=== PATIENT | female | born 1940 | race Caucasian/White ===

== ENCOUNTER → 2023-09-25 12:52 | Outpatient (REF) | payer OTHER, SELFPAY | LOC: RAD 12:52 | PROVIDERS: ATTENDING PHYSICIAN Internal Medicine Cardiovascular Disease; FAMILY PHYSICIAN Emergency Medicine | DX: I48.0 Paroxysmal atrial fibrillation (principal); Z79.899 Other long term (current) drug therapy | CPT/HCPCS: 71046 ==

== ENCOUNTER → 2024-05-07 10:36 | Outpatient (REF) | payer OTHER, SELFPAY | LOC: RAD 10:36 | PROVIDERS: ATTENDING PHYSICIAN Internal Medicine Cardiovascular Disease; FAMILY PHYSICIAN Emergency Medicine | DX: I48.0 Paroxysmal atrial fibrillation (principal) | CPT/HCPCS: 71046 ==

== ENCOUNTER 2024-10-02 07:40 | Emergency (ER) | payer OTHER, SELFPAY ==
[2024-10-02 07:49] VITALS: BP 117/55
[2024-10-02 07:50] VITALS: BP 117/55
[2024-10-02 08:00] VITALS: BP 118/53
--- NOTE | 2024-10-02 08:36 | ED.GENMED ---
History of Present Illness
General
Chief Complaint: Dizziness
Source: patient
Exam Limitations: none
Time Seen by Provider: 10/02/24 08:16
History of Present Illness
History of Present Illness:
84-year-old female presents with sensation of frontal headache and vertigo sensation starting yesterday getting worse today. She is on Eliquis do not milligrams twice a day for history of atrial fibrillation. She had routine follow-up with her
car seat maker 5 days ago and was found to be in A-fib with a rate in the 120s. She was asymptomatic at that time. She followed up again 2 days ago with the cardiology team and was found back to be in sinus rhythm. She has no complaints of chest
pain. Since 2 days ago, the cardiology team increased her amiodarone dosing. She was initially on 100 mg every morning as well as 100 mg every other night. She was then changed to 200mg BID. She feels as though her symptoms may be related to
increased dose of amiodarone. 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 She has no new numbness or weakness. She denies any double vision blurry vision. She is nauseous. Dizziness is described as constant not
made worse with turning her head but seems to be increased with sitting up.
Past History
Past History
ED Past Medical History: Arrthythmia, HTN and Hypercholesterolemia
ED Past Surgical History: None
Social History
Tobacco: Former smoker
Personal:
Living: with family
Phy Exam
Physical Exam
Physical Exam:
General: Well-appearing female no acute respiratory distress
HEENT: Normocephalic atraumatic pupils equal round reactive to light no obvious nystagmus noted
Heart: Regular rate and rhythm
Lungs: Clear no wheeze
Abdomen is soft nontender nondistended
Neurologic exam: Alert and oriented x 3 no facial asymmetry finger-nose intact no arm drift. No leg drift. There is a subtle this conjunction with [id number] using the left heel on the right adams. Patient states this is her chronic issue from
her prior stroke.
Extremities: No cyanosis
Course
Orders/Labs/Results
Orders:
Orders
10/02/24 07:57
EKG [Electrocardiogram (*1)] Urgent
Reason for Study: Vertigo / Dizzy
10/02/24 07:58
EKG- Treatment ONCE
10/02/24 08:30
CT Head W/o Iv Contrast Urgent
Comment:
Reason For Exam: headache, dizzy
10/02/24 08:34
Orthostatic VS- Treatment ONCE
10/02/24 08:57
Complete Blood Count/With Diff Urgent
Comprehensive Metabolic Panel Urgent
Abnormal Lab Results
10/02/24
08:57
MCHC 32.9 L g/dL
(33.0-37.0)
RDW 14.7 H %
(11.5-14.5)
Absolute Lymphs (auto) 1.0 L 10^3/uL
(1.2-3.4)
Neutrophils % 75.9 H %
(42.2-75.2)
Lymphocytes % 13.9 L %
(20.5-51.1)
BUN 22 H mg/dl
(7-17)
Glucose 119 H mg/dl
(70-99)
Total Bilirubin 1.5 H mg/dl
(0.2-1.3)
10/02/24 08:57
10/02/24 08:57
Vital Signs
Initial and Last Documented VS:
Initial Vital Signs
BP
117/55
10/02/24 07:49
Last Documented Vital Signs
Temp Pulse Resp BP Pulse Ox
97.8 F 53 16 123/55 97
10/02/24 07:50 10/02/24 09:15 10/02/24 07:50 10/02/24 10:30 10/02/24 09:15
MDM/Problems Addressed
Differential Diagnosis Includes:
Dizziness. Question vertigo versus orthostasis versus medication adverse reaction versus stroke. Given her headache and dizziness CT of the head is pending. Will check labs EKG and orthostatics.
*Critical Care Note
Total Time (30-74mins, 75-104mins- exclusive of procedures): Not Applicable
Update Note
Update Note:
CT head is negative. Patient feeling somewhat better with time here. Discussed with emergency room attending as well as cardiology. Patient has been bradycardic here not feeling well. Cardiology did suggest to go back to her initial amiodarone
dosing. Patient expresses her desire to go home. She is with family who is in agreement. She follows up with cardiology next week. Stable for discharge
ED Attending Note
-
Portions of this chart may have been created with voice recognition software.� Occasional wrong word or��sound alike� substitutions may have occurred due to the inherent limitations of voice recognition software.
Discharge Plan
Departure
Patient Disposition: Home (Routine Discharge)
Date of Disposition: 10/02/24
Time of Disposition: 10:50
Patient with high blood pressure during this ER visit?: No
Discharge Problem:
Weakness
Instructions: Dizziness
Prescriptions:
No Action
multivitamin [Pdz-[id number]] 1 EACH tablet
1 ea PO DAILY
ascorbic acid (vitamin C) [Vitamin C] 500 MG tablet
500 mg PO DAILY
vitamin B complex-folic acid [Super B Maxi Complex] 0.4 MG tablet
0.4 mg PO DAILY
calcium carbonate-vitamin D3 1 EACH tablet
1 ea PO DAILY
Krill Oil
1 tab PO DAILY
acetaminophen 325 MG tablet
650 mg PO Q4HPRN PRN (Reason: temp greater than 100.4 F) 0RF
rosuvastatin 10 MG tablet
10 mg PO QPM Qty: 30 0RF
Eliquis 5 MG tablet
5 mg PO BID Qty: 60 0RF
benazepril-hydrochlorothiazide 20-12.5 mg Tablet
1 tab PO DAILY
amiodarone 100 mg Tablet
100 mg PO BID
amlodipine benzoate 1 mg/mL Suspension
5 mg PO DAILY
meclizine 25 mg tablet
25 mg PO BID PRN (Reason: dizziness) Qty: 14 0RF
Referrals:
Carolina Wakefield MD [Family Provider] -
Activity Restrictions/Additional Instructions:
Please resume your original dose of amiodarone of 100 mg every morning and subsequently 100 mg every other night. Follow-up with a car seat maker as scheduled. Return if needed otherwise
Interventions
Interventions:
*Risk Screen - Suicide Last Done: 10/02/24 07:50
*General Assessment Last Done: 10/02/24 07:50
*Neglect/Abuse Screening Last Done: 10/02/24 07:50
*ED COVID-19 Vaccine History Last Done: 10/02/24 07:55
ED- Neurological Assessment Last Done: 10/02/24 07:56
ED Swallowing Screen Last Done: 10/02/24 07:56
Discharge Date and Time
Print Language: SAMI
[2024-10-02 09:00] VITALS: BP 112/47
[2024-10-02 09:06] LABS: % Basophils 0.8 % (0-2); % Eosinophils 2.7 % (0-6); % Immature Granulocytes 0.4 % (0-0.5); % Lymphocytes 13.9 % (20.5-51.1); % Monocytes 6.3 % (1.7-9.3); % Neutrophils 75.9 % (42.2-75.2); Absolute Basophils 0.1 10^3/uL (0-0.2); Absolute Eosinophils 0.2 10^3/uL (0-0.7); Absolute Monocytes 0.5 10^3/uL (0.1-0.6); Absolute Neutrophils 5.6 10^3/uL (1.4-6.5); Hematocrit 41.7 % (37.0-47.0); Hemoglobin 13.7 g/dL (12.0-16.0); Mean Corp Hgb Conc. 32.9 g/dL (33.0-37.0); Mean Corpuscular Hgb 28.5 pg (27.0-31.0); Mean Corpuscular Volume 86.7 fL (81.0-99.0); Mean Platelet Volume 9.1 fL (7.4-10.4); Nucleated Red Blood Cells % 0 %; Platelet Count 215 10^3/uL (130-400); Red Blood Cell Count 4.81 10^6/uL (4.20-5.40); Red Cell Dist. Width 14.7 % (11.5-14.5); White Blood Cell Count 7.4 10^3/uL (4.8-10.8)
[2024-10-02 09:22] LABS: ALT (SGPT) 17 U/L (0-35); AST (SGOT) 31 U/L (14-36); Albumin 4.1 g/dl (3.5-5.0); Alkaline Phosphatase 106 U/L (38-126); Blood Urea Nitrogen 22 mg/dl (7-17); Calcium 9.5 mg/dl (8.4-10.2); Carbon Dioxide 27 mmol/L (22-30); Chloride 104 mmol/L (98-107); Glucose 119 mg/dl (70-99); Potassium 4.3 mmol/L (3.5-5.1); Sodium 138 mmol/L (135-145); Total Bilirubin 1.5 mg/dl (0.2-1.3); Total Protein 7.6 g/dl (6.3-8.2); eGFR > 60.00
[2024-10-02 10:30] VITALS: BP 100/63; BP 123/51; BP 123/55; PULSE 62; PULSE 64; PULSE 79
[2024-10-02 11:14] VITALS: BP 134/78
== END 2024-10-02 11:16 | disposition home or self-care (01) ==
LOC: EMR 07:40
PROVIDERS: Physician Assistant; EMERGENCY PHYSICIAN Emergency Medicine; FAMILY PHYSICIAN Emergency Medicine
DX: R53.1 Weakness (principal); I10 Essential (primary) hypertension; E78.00 Pure hypercholesterolemia, unspecified; Z79.01 Long term (current) use of anticoagulants; Z86.73 Personal history of transient ischemic attack (TIA), and cerebral infarction without residual deficits; Z87.891 Personal history of nicotine dependence
CPT/HCPCS: 99284; 70450; 80053; 85025; 93005

== ENCOUNTER → 2024-10-11 13:18 | Outpatient (REF) | payer OTHER, SELFPAY | LOC: RCS 13:18 | PROVIDERS: ATTENDING PHYSICIAN Internal Medicine Cardiovascular Disease; FAMILY PHYSICIAN Emergency Medicine | DX: I48.0 Paroxysmal atrial fibrillation (principal) | CPT/HCPCS: 93306 ==

== ENCOUNTER 2024-11-19 12:00 | Emergency (ER) | payer OTHER, SELFPAY ==
[2024-11-19 12:08] VITALS: BP 150/78
--- NOTE | 2024-11-19 12:53 | ED.GENMED ---
History of Present Illness
General
Chief Complaint: Musculo-Skeletal Complaint
Source: patient and physician (Dr. Okeefe, sending patient from home after patient called her in office. She was seen for a sick visit on 11/15/2024 and her cough and rib pain is getting worse. She was placed on cefdinir and methylprednisolone for
bronchitis.)
Exam Limitations: none
Time Seen by Provider: 11/19/24 12:33
Nursing documentation reviewed up to this point in time: agreed with
History of Present Illness
History of Present Illness:
84-year-old female presents emergency department due to cough, that began about 2 weeks ago as sinus congestion. She saw her primary care doctor and was given cefdinir and methylprednisolone. She states her cough and rib pain persist. He takes
amiodarone and Eliquis for atrial fibrillation.
Past History
Past History
ED Past Medical History: Arrthythmia, HTN and Hypercholesterolemia
ED Past Surgical History: None
Social History
Tobacco: Former smoker
Alcohol: None
Drug: None
Personal:
Living: with family
Review of Systems
Review of Systems
Allergies reviewed?: Yes
All Other Systems: Not applicable
Constitutional: Reports no symptoms
EENT: Reports no symptoms
Respiratory: Reports cough and trouble breathing
Cardiac: Reports chest pain
ABD/GI: Reports no symptoms
: Reports no symptoms
Musculoskeletal: Reports no symptoms
Skin: Reports no symptoms
Neurological: Reports no symptoms
Endocrine: Reports no symptoms
Hematologic/Lymphatic: Reports no symptoms
Psychiatric: Reports no symptoms
Phy Exam
Physical Exam
Physical Exam:
Physical Exam
General: no apparent distress, not acutely ill
Neck: supple. no meningeal signs. normal posterior pharynx
Heart: s1/s2 regular rate and rhythm, no murmur. equal radial
pulses.
HEENT: Pupils equal round reactive to light, EOMI
Lungs: no acute respiratory distress. Mild wheeze bilaterally
Abdomen: normal bowel sounds. not tender. no CVAT
Neuro: alert and oriented. no focal neurological deficits cranial nerves II through XII intact
Skin: no rash
Psychiatric: well kept. interactive and cooperative
Extremities: no edema. no calf tenderness. negative homans. good distal pulses
Course
Orders/Labs/Results
Orders:
Orders
11/19/24 12:12
CR Chest - 2 Views Urgent
Comment:
Reason For Exam: pain
11/19/24 12:49
Electrocardiogram (*1) Stat
Reason for Study: Other
Other Reason for Exam: pneumonia
EKG- Treatment ONCE
IV Insert/Care/Rem.- Treatment PRN
11/19/24 13:08
Complete Blood Count/With Diff Urgent
Comprehensive Metabolic Panel Urgent
Lactic Acid Q4H
Comment: CANCEL 2nd LACTIC ACID IF 1st LACTIC ACID IS LESS THAN 2
NT-proBNP Urgent
Troponin I Urgent
11/19/24 16:05
Amoxicillin 875 mg/Clav 125 mg [Augmentin 875 mg/125 mg] 1 tablet PO NOW STA
Doxycycline [Vibramycin] 100 mg PO NOW STA
Abnormal Lab Results
11/19/24
13:08
RDW 14.8 H %
(11.5-14.5)
Abs Immat Gran (auto) 0.1 H 10^3/uL
(0-0.05)
Absolute Neuts (auto) 8.2 H 10^3/uL
(1.4-6.5)
Absolute Lymphs (auto) 0.8 L 10^3/uL
(1.2-3.4)
Immature Gran % 1.1 H %
(0-0.5)
Neutrophils % 84.4 H %
(42.2-75.2)
Lymphocytes % 7.7 L %
(20.5-51.1)
Glucose 128 H mg/dl
(70-99)
11/19/24 13:08
11/19/24 13:08
Vital Signs
Initial and Last Documented VS:
Initial Vital Signs
Temp Pulse Resp BP Pulse Ox
98.9 F 79 16 150/78 94
11/19/24 12:08 11/19/24 12:08 11/19/24 12:08 11/19/24 12:08 11/19/24 12:08
Last Documented Vital Signs
Temp Pulse Resp BP Pulse Ox
98.9 F 79 16 150/78 94
11/19/24 12:08 11/19/24 12:08 11/19/24 12:08 11/19/24 12:08 11/19/24 12:23
MDM/Problems Addressed
Differential Diagnosis Includes:
Pneumonia, pneumothorax, rib fracture
MDM/Problems Addressed:
84-year-old female with right-sided pneumonia, treat with Augmentin and doxycycline.
Chronic conditions affecting care: HTN and Arrhythmia
Acute Exacerbation and/or Progression of Chronic Illness: HTN
*Radiology
Radiology exam reviewed: radiology read reviewed (Right-sided pneumonia)
*Pulse Oximetry
Patient hypoxic: no
*EKG
Interpreted by ED Provider?: Yes
EKG Intrepretation Date: 11/19/24
EKG Intrepretation Time: 13:41
Interpretation: abnormal
Comparison EKG: no comparison EKG present
Heart Rate: 64
Rate: normal
Rhythm: sinus
Reserve: left axis deviation
Interval: normal interval
QRS Pattern: normal QRS
Ischemia: no ischemia
*Nuclear Auxiliary Operator Interpretation
Rate: normal
Interpretation: normal
Heart Rate: 65
Rhythm: sinus
*Critical Care Note
Total Time (30-74mins, 75-104mins- exclusive of procedures): Not Applicable
Patient Management
Social determinants of health affecting care: Living situation and Strong social support
Escalation/DeEscalation of care consider admission/obs:
admit not indicated
ED Attending Note
-
Portions of this chart may have been created with voice recognition software.� Occasional wrong word or��sound alike� substitutions may have occurred due to the inherent limitations of voice recognition software.
Discharge Plan
Departure
Patient Disposition: Home (Routine Discharge)
Date of Disposition: 11/19/24
Time of Disposition: 16:07
Patient with high blood pressure during this ER visit?: Yes
Condition: Good
Discharge Problem:
Pneumonia
Instructions: Pneumonia, BLOOD PRESSURE
Prescriptions:
New
amoxicillin-pot clavulanate 875-125 mg tablet
1 tab PO BID Qty: 14 0RF
doxycycline hyclate 100 mg tablet
100 mg PO BID 14 Days Qty: 28 0RF
No Action
multivitamin [Rmq-Wlxcxv-Jyckj] 1 EACH tablet
1 ea PO DAILY
ascorbic acid (vitamin C) [Vitamin C] 500 MG tablet
500 mg PO DAILY
vitamin B complex-folic acid [Super B Maxi Complex] 0.4 MG tablet
0.4 mg PO DAILY
calcium carbonate-vitamin D3 1 EACH tablet
1 ea PO DAILY
Krill Oil
1 tab PO DAILY
acetaminophen 325 MG tablet
650 mg PO Q4HPRN PRN (Reason: temp greater than 100.4 F) 0RF
rosuvastatin 10 MG tablet
10 mg PO QPM Qty: 30 0RF
Eliquis 5 MG tablet
5 mg PO BID Qty: 60 0RF
benazepril-hydrochlorothiazide 20-12.5 mg Tablet
1 tab PO DAILY
amiodarone 100 mg Tablet
100 mg PO BID
amlodipine benzoate 1 mg/mL Suspension
5 mg PO DAILY
meclizine 25 mg tablet
25 mg PO BID PRN (Reason: dizziness) Qty: 14 0RF
Referrals:
Carolina Wakefield MD [Family Provider] - Call in 1-3 days for appt
Interventions
Interventions:
*Risk Screen - Suicide Last Done: 11/19/24 12:08
*General Assessment Last Done: 11/19/24 12:08
*Neglect/Abuse Screening Last Done: 11/19/24 12:08
*ED- Fall Risk Assessment Last Done: 11/19/24 12:08
*ED COVID-19 Vaccine History Last Done: 11/19/24 12:08
*Nursing Disposition Last Done: 11/19/24 16:29
ED-Musculoskeletal Assessment Last Done: 11/19/24 12:22
Discharge Date and Time
Discharge Date/Time: 11/19/24 16:30
Print Language: YAKUT
[2024-11-19 13:08] VITALS: BMI 21.4
[2024-11-19 13:40] LABS: % Basophils 0.3 % (0-2); % Eosinophils 0.1 % (0-6); % Immature Granulocytes 1.1 % (0-0.5); % Lymphocytes 7.7 % (20.5-51.1); % Monocytes 6.4 % (1.7-9.3); % Neutrophils 84.4 % (42.2-75.2); Absolute Immature Granulocytes 0.1 10^3/uL (0-0.05); Absolute Lymphocytes 0.8 10^3/uL (1.2-3.4); Absolute Monocytes 0.6 10^3/uL (0.1-0.6); Absolute Neutrophils 8.2 10^3/uL (1.4-6.5); Hematocrit 39.4 % (37.0-47.0); Hemoglobin 13.2 g/dL (12.0-16.0); Mean Corp Hgb Conc. 33.5 g/dL (33.0-37.0); Mean Corpuscular Hgb 28.9 pg (27.0-31.0); Mean Corpuscular Volume 86.2 fL (81.0-99.0); Mean Platelet Volume 8.6 fL (7.4-10.4); Nucleated Red Blood Cells % 0 %; Platelet Count 362 10^3/uL (130-400); Red Blood Cell Count 4.57 10^6/uL (4.20-5.40); Red Cell Dist. Width 14.8 % (11.5-14.5); White Blood Cell Count 9.8 10^3/uL (4.8-10.8)
[2024-11-19 13:58] LABS: ALT (SGPT) 21 U/L (0-35); AST (SGOT) 22 U/L (14-36); Albumin 3.6 g/dl (3.5-5.0); Alkaline Phosphatase 89 U/L (38-126); Blood Urea Nitrogen 17 mg/dl (7-17); Calcium 9.2 mg/dl (8.4-10.2); Carbon Dioxide 27 mmol/L (22-30); Chloride 100 mmol/L (98-107); Estimated Creatinine Clearance 42 ml/min; Glucose 128 mg/dl (70-99); Potassium 3.9 mmol/L (3.5-5.1); Sodium 135 mmol/L (135-145); Total Bilirubin 0.8 mg/dl (0.2-1.3); Total Protein 7.1 g/dl (6.3-8.2); eGFR > 60.00
[2024-11-19 14:03] LABS: NT-proBNP 771 pg/ml; Troponin I < 0.012 ng/ml
[2024-11-19] MEDS: VIBRAMYCIN 100 MG PO (16:13)
[2024-11-19] MEDS: AUGMENTIN 875 MG/125 MG 1 TABLET PO (16:13)
== END 2024-11-19 16:30 | disposition home or self-care (01) ==
LOC: EMR 12:00
PROVIDERS: EMERGENCY PHYSICIAN Emergency Medicine; FAMILY PHYSICIAN Emergency Medicine
DX: J18.9 Pneumonia, unspecified organism (principal); E78.00 Pure hypercholesterolemia, unspecified; I10 Essential (primary) hypertension; Z87.891 Personal history of nicotine dependence; I48.91 Unspecified atrial fibrillation; Z79.01 Long term (current) use of anticoagulants
CPT/HCPCS: 99285; 71046; 80053; 83605; 83880; 84484; 85025; 93005

== ENCOUNTER 2024-11-22 14:07 | Inpatient (IN) | payer OTHER, SELFPAY ==
[2024-11-22] VITALS (7 sets, daily range): BP systolic 105–136; BP diastolic 54–74; BMI 18.9; BMI 20.8
[2024-11-22 09:58] LABS: % Basophils 0.7 % (0-2); % Eosinophils 3.8 % (0-6); % Immature Granulocytes 1.3 % (0-0.5); % Monocytes 9.7 % (1.7-9.3); % Neutrophils 67.5 % (42.2-75.2); Absolute Basophils 0.1 10^3/uL (0-0.2); Absolute Eosinophils 0.4 10^3/uL (0-0.7); Absolute Immature Granulocytes 0.2 10^3/uL (0-0.05); Absolute Lymphocytes 1.9 10^3/uL (1.2-3.4); Absolute Monocytes 1.1 10^3/uL (0.1-0.6); Absolute Neutrophils 7.7 10^3/uL (1.4-6.5); Hematocrit 40.5 % (37.0-47.0); Hemoglobin 13.3 g/dL (12.0-16.0); Mean Corp Hgb Conc. 32.8 g/dL (33.0-37.0); Mean Corpuscular Hgb 28.2 pg (27.0-31.0); Mean Platelet Volume 8.3 fL (7.4-10.4); Nucleated Red Blood Cells % 0 %; Platelet Count 416 10^3/uL (130-400); Red Blood Cell Count 4.71 10^6/uL (4.20-5.40); Red Cell Dist. Width 14.6 % (11.5-14.5); White Blood Cell Count 11.3 10^3/uL (4.8-10.8)
[2024-11-22 10:12] LABS: ALT (SGPT) 20 U/L (0-35); AST (SGOT) 23 U/L (14-36); Albumin 3.8 g/dl (3.5-5.0); Alkaline Phosphatase 85 U/L (38-126); Blood Urea Nitrogen 12 mg/dl (7-17); Calcium 9.6 mg/dl (8.4-10.2); Carbon Dioxide 26 mmol/L (22-30); Chloride 100 mmol/L (98-107); Glucose 116 mg/dl (70-99); Potassium 4.2 mmol/L (3.5-5.1); Sodium 135 mmol/L (135-145); Total Protein 7.4 g/dl (6.3-8.2); eGFR > 60.00
[2024-11-22 10:22] LABS: Troponin I < 0.012 ng/ml
--- NOTE | 2024-11-22 10:58 | ED.GENMED ---
History of Present Illness
General
Chief Complaint: Breathing Problem
Source: patient
Time Seen by Provider: 11/22/24 10:31
Nursing documentation reviewed up to this point in time: agreed with
History of Present Illness
History of Present Illness:
Patient is 84-year-old female presents back to the ER for evaluation. Patient was seen here on November 19 3 days ago for cough and congestion. She was discharged on Augmentin and doxycycline however now complains of night sweats last night shortness of
breath along with increasing pain to her entire back. Patient reports she saw her family doctor today who does feel that she needs to be admitted .
She reports she has had night sweats last night complains of pain throughout her entire back. Prior to being on Augmentin and doxycycline she was on cefdinir prescribed to her family doctor. I reviewed chest x-ray results from 3 days ago which
shows a small patchy opacity in the right lower lobe suggesting atelectasis and or pneumonia
Past History
Past History
ED Past Medical History: Arrthythmia, HTN and Hypercholesterolemia
ED Past Surgical History: None
Social History
Tobacco: Former smoker
Alcohol: None
Drug: None
Personal:
Living: with family
Review of Systems
Review of Systems
Allergies reviewed?: Yes
Constitutional: Reports no symptoms; Denies fever, fatigue or chills
Respiratory: Reports cough
Cardiac: Reports no symptoms
ABD/GI: Reports no symptoms
Musculoskeletal: Reports back pain (+ back pain )
Skin: Reports no symptoms
Neurological: Reports no symptoms
Psychiatric: Reports no symptoms
Phy Exam
General Physical Exam
General Presentation: no apparent distress
General age: appears stated age
General Skin: warm and dry
General Habitus: elderly
General Mental: alert
General Hydration: appears well hydrated
Cardiovascular Exam
Cardiovascular Exam: regular rate/rhythm, no murmur and normal peripheral pulses
Pulmonary Exam
Pulmonary Exam: lungs clear and no respiratory distress
Neurological Exam
Neurological Exam: alert and oriented x3
Musculoskeletal Exam
Musculoskeletal Exam: full ROM and neck pain
Skin Exam
Skin Exam: normal color
Psychiatric Exam
Psychiatric Exam: normal mood/affect
Scores
Heart Failure Risk
Heart Failure Risk Score: Not Applicable
Course
Orders/Labs/Results
Orders:
Orders
11/22/24 09:38
Electrocardiogram (*1) Urgent
Reason for Study: Other
Other Reason for Exam: back pain
EKG- Treatment ONCE
11/22/24 09:45
Complete Blood Count/With Diff Urgent
Comprehensive Metabolic Panel Urgent
Troponin I Urgent
11/22/24 11:07
CT Chest PE Study Urgent
Comment:
Reason For Exam: back pain , fevers
0.9% Sodium Chloride 500 ml [Nss] 500 ml IV BOLUS
Abnormal Lab Results
11/22/24
09:45
WBC 11.3 H 10^3/uL
(4.8-10.8)
MCHC 32.8 L g/dL
(33.0-37.0)
RDW 14.6 H %
(11.5-14.5)
Plt Count 416 H 10^3/uL
(130-400)
Abs Immat Gran (auto) 0.2 H 10^3/uL
(0-0.05)
Absolute Neuts (auto) 7.7 H 10^3/uL
(1.4-6.5)
Absolute Monos (auto) 1.1 H 10^3/uL
(0.1-0.6)
Immature Gran % 1.3 H %
(0-0.5)
Lymphocytes % 17.0 L %
(20.5-51.1)
Monocytes % 9.7 H %
(1.7-9.3)
Glucose 116 H mg/dl
(70-99)
11/22/24 09:45
11/22/24 09:45
Vital Signs
Initial and Last Documented VS:
Initial Vital Signs
Temp Pulse Resp BP Pulse Ox
98.0 F 80 20 136/71 96
11/22/24 09:36 11/22/24 09:36 11/22/24 09:36 11/22/24 09:36 11/22/24 09:36
Last Documented Vital Signs
Temp Pulse Resp BP Pulse Ox
98.0 F 65 18 136/71 96
11/22/24 09:36 11/22/24 11:46 11/22/24 11:46 11/22/24 09:36 11/22/24 11:46
Scrap Piler consulted with Physician
Scrap Piler consulted with physician?: Yes
Name of Physician Consulted: dominga
MDM/Problems Addressed
Differential Diagnosis Includes:
Not limited to PE, pneumonia(failed outpatient treatment)
MDM/Problems Addressed:
84 yr old female with failed outpt pneumonia. pt was recently here November 19 and diagnosed with pneumonia placed on Augmentin and doxycycline. Prior to that she was on cefdinir. She presents with pain to her back. This started when symptoms of
pneumonia started. She denies any fevers or white count however was minimally elevated 11.3, her chemistry is unremarkable.
A CAT scan was ordered today to further evaluate pneumonia which is negative for PE but does show moderate right lower lobe mid left lobe and minimal right upper lobe findings suggesting pneumonia with bilateral pneumonia despite antibiotics would
recommend admission to the hospital with IV antibiotics IV vancomycin and Zosyn ordered)
*Radiology
Radiology exam reviewed: radiology read reviewed
*EKG
Interpreted by ED Provider?: Yes
Heart Rate: 76
Rate: normal
Rhythm: sinus
*Critical Care Note
Total Time (30-74mins, 75-104mins- exclusive of procedures): Not Applicable
Data Reviewed
Review of Other/Old Records Reveals: Radiology Studies and Other (previous ED visit )
ED Attending Note
-
Portions of this chart may have been created with voice recognition software.� Occasional wrong word or��sound alike� substitutions may have occurred due to the inherent limitations of voice recognition software.
Discharge Plan
Departure
Patient Disposition: Admit
Date of Disposition: 11/22/24
Time of Disposition: 13:21
Admit to: Med/Surg
Admit to doctor: hospitalist
Presentation/result/management discussed w/ accepting MD/DO: Hospitalist
Patient with high blood pressure during this ER visit?: Yes
Condition: Fair
Covid-19: Not Applicable
Discharge Problem:
bilateral pneumonia
Prescriptions:
No Action
multivitamin [Vuk-Hleepo-Whfkb] 1 EACH tablet
1 ea PO DAILY
ascorbic acid (vitamin C) [Vitamin C] 500 MG tablet
500 mg PO DAILY
vitamin B complex-folic acid [Super B Maxi Complex] 0.4 MG tablet
0.4 mg PO DAILY
calcium carbonate-vitamin D3 1 EACH tablet
1 ea PO DAILY
Krill Oil
1 tab PO DAILY
acetaminophen 325 MG tablet
650 mg PO Q4HPRN PRN (Reason: temp greater than 100.4 F) 0RF
rosuvastatin 10 MG tablet
10 mg PO QPM Qty: 30 0RF
Eliquis 5 MG tablet
5 mg PO BID Qty: 60 0RF
benazepril-hydrochlorothiazide 20-12.5 mg Tablet
1 tab PO DAILY
amiodarone 100 mg Tablet
100 mg PO BID
amlodipine benzoate 1 mg/mL Suspension
5 mg PO DAILY
meclizine 25 mg tablet
25 mg PO BID PRN (Reason: dizziness) Qty: 14 0RF
amoxicillin-pot clavulanate 875-125 mg tablet
1 tab PO BID Qty: 14 0RF
doxycycline hyclate 100 mg tablet
100 mg PO BID 14 Days Qty: 28 0RF
Referrals:
UNKNOWN - PT NOT,INTERVIEWE [Family Provider] -
Interventions
Interventions:
*Risk Screen - Suicide Last Done: 11/22/24 09:36
*General Assessment Last Done: 11/22/24 11:00
ED- Cardiac Assessment Last Done: 11/22/24 11:00
ED- Pulmonary Assessment Last Done: 11/22/24 11:00
Discharge Date and Time
Print Language: TOGOLESE
[2024-11-22] MEDS: NSS 500 IV (11:37)
[2024-11-22] MEDS: VANCOCIN 200 IV (13:45)
[2024-11-22] MEDS: ZOSYN 50 IV ×2 (13:45→21:15)
--- NOTE | 2024-11-22 13:52 | HPS.HSE ---
Addendum entered and electronically signed by Rui Lancaster MD 11/22/24 18:42:
Per Floor RN ( Addie YIN ) Isabel Thomson, was stating that she is a DNR (states she has paperwork but not with her)
- will change to DNR
Original Note:
Family Physician
-
Family Physician: INTERVIEWE UNKNOWN - PT NOT
Chief Complaint
-
night sweats, SoB despite ABx for OP PNA
History of Present Illness
HPI
84F Non smoker, HX HTN seen at ER :
- she was seen at ER 3 days ago for cough and congestion. She was discharged on Augmentin and doxycycline
- return to ER with night sweats last night shortness of breath along with increasing pain to her entire back.
- she saw her PCP and was sent to ER
- reports she has had night sweats last night complains of pain throughout her entire back.
- Prior to being on Augmentin and doxycycline she was on cefdinir prescribed to her family doctor.
11/19/24 CXR; small patchy opacity in the Rt LL suggesting atelectasis and or pneumonia
Medical History
Past Medical History
Past Medical History: Reports Arrhythmia (Prx AF ), HTN, Hypercholesterolemia and Other (Stable moderate T8 compression fracture HX )
Past Surgical History: Reports None
Social History
Tobacco: Non-smoker
Family History
Family History: Not pertinent
Allergies / Home Medications
Allergies reflects when Allergies were last updated in [facility].
Home Medications with original date entered in [facility]
Allergy/Medication List:
Allergies
Allergy/AdvReac Type Severity Reaction Status Date / Time
No Known Allergies Allergy Verified 11/22/24 09:36
Home Medications
ascorbic acid (vitamin C) 500 mg tablet (Vitamin C) 500 mg PO DAILY 04/28/17
calcium 500 mg (as carbonate)-vitamin D3 3.125 mcg (125 unit) tablet 1 ea PO DAILY 04/28/17
acetaminophen 325 mg tablet 650 mg (2 x 325 mg) PO Q4HPRN PRN temp greater than 100.4 F 05/04/17
rosuvastatin 10 mg tablet 10 mg PO QPM ##30 05/04/17
amiodarone 100 mg tablet 200 mg PO DAILY 04/06/23
benazepril 20 mg-hydrochlorothiazide 12.5 mg tablet 1 tab PO DAILY 04/06/23
amoxicillin 875 mg-potassium clavulanate 125 mg tablet 1 tab PO BID #14 tabs 11/19/24
doxycycline hyclate 100 mg tablet 100 mg PO BID 14 days #28 tabs 11/19/24
amlodipine 5 mg tablet (Norvasc) 5 mg PO QPM 11/22/24
apixaban 2.5 mg tablet (Eliquis) 2.5 mg PO BID 11/22/24
therapeutic multivitamin 1 tab PO DAILY 11/22/24
vitamin B complex 1 tab PO DAILY 11/22/24
Review of Systems
-
Constitutional: Reports No Symptoms
EENT: Reports No Symptoms
Respiratory: Reports See HPI and Trouble Breathing
Cardiac: Reports No Symptoms
Abdomen/GI: Reports No Symptoms
: Reports No Symptoms
Musculoskeletal: Reports See HPI
Skin: Reports No Symptoms
Neurological: Reports No Symptoms
Endocrine: Reports No Symptoms
Hematologic/Lymphatic: Reports No Symptoms
Psych: Reports No Symptoms
Physical Exam
Vital Signs
Vital Signs
Temp Pulse Resp BP Pulse Ox
98.0 F 65 18 136/71 96
11/22/24 09:36 11/22/24 11:46 11/22/24 11:46 11/22/24 09:36 11/22/24 11:46
Physical Exam
General: Well Developed, Well Nourished and No Apparent Distress
HEENT: NormoCephalic, Moist mucous membranes and Atraumatic
Respiratory: Clear
Cardiac: S1/S2 and Regular Rhythm; No Murmur or Rub
GI: Soft, Non Tender, Non Distended and Normal Bowel Sounds; No Organomegaly
Rectal: Deferred by Provider
Musculoskeletal: No Clubbing, No Cyanosis and No Edema
Skin: No Rash
Neuro: Nonfocal/grossly intact
Laboratory Results
-
11/22/24 09:45
11/22/24 09:45
Laboratory Results
Total Bilirubin 1.0 mg/dl (0.2-1.3) 11/22/24 09:45
AST 23 U/L (14-36) 11/22/24 09:45
ALT 20 U/L (0-35) 11/22/24 09:45
Alkaline Phosphatase 85 U/L (38-126) 11/22/24 09:45
Troponin I < 0.012 ng/ml 11/22/24 09:45
Data Reviewed
-
Diagnostic Radiology: Report Reviewed by me
CT Scan: Report Reviewed by me
Lab Data: Labs Reviewed by me
Old Records: Reviewed
Impression/Plan
-
Reviewed VS: Afebrile, HR 80- 65 RR 20-18 BP 136/71 POx 96 on RA
Data
WCC 11.3
nl BMP
nl LFTs
BG 116
NEG TPN
11/22/24 CT Chest PE Study
- No evidence of pulmonary embolus.
- Moderate right lower lobe, mild left lower lobe and minimal right upper lobe findings suggesting pneumonia.
- Mild bilateral hilar lymphadenopathy likely reactive
- Bilateral renal cysts.
- Gallstones.
- Dilated thoracic aorta as described above.
- Moderate T8 compression fracture. Stable
EKG
SINUS RHYTHM WITH 1ST DEGREE A-V BLOCK
LEFT AXIS DEVIATION
MINIMAL VOLTAGE CRITERIA FOR LVH, MAY BE NORMAL VARIANT ( [place] product )
SEPTAL INFARCT , AGE UNDETERMINED
ABNORMAL ECG
WHEN COMPARED WITH ECG OF 19-NOV-2024 13:41,
NONSPECIFIC T WAVE ABNORMALITY, WORSE IN LATERAL LEADS
Confirmed by LEDA BROOKS, JB ([id number]) on 11/22/2024 12:33:54 PM
No prior hospitalist admission since 2017
ASSESSMENT & PLAN
Pending Rx reconciliation
PNA : Failed OP ABx ( Cephalosporins followed by PO Augmentin + Doxy last 3 days)
CT suggests Moderate RLL, mild RUL, mild LLL PNA : afebrile, Leucocytosis
Associated reactive hilar LAD
NEG CTC for PE
lasr NEG MRSA screen was 2017
- c/w Zosyn and Vanco for now
- check MRSA screen
Increasing back pain which started when pneumonia s/s started suspect pleurisy Rt > Lt
- PRN IV Toradol IV for mod /severe pain
- avoid NSAIDS due to chr Eliquis use
Stable moderate T8 compression fracture
HX Prx AF
- CAMERA TECHNICIAN Amiodarone, Eliquis to be cont.
Benign HTN
- CAMERA TECHNICIAN Amlodipine, Benazepril and HCTZ to be cont.
HLD
- CAMERA TECHNICIAN Rosuvastatin michael be cont.
DVT Px: on Eliquis
Full code
IP TLM
--- NOTE | 2024-11-22 16:12 | EDRN ---
Patient reporting mid back pain that is a 5/10. Toradolol ordered as transfer med. Meds released so pain med can be administered.
[2024-11-22] MEDS: TORADOL 15 MG IV (16:52)
--- NOTE | 2024-11-22 18:53 | PHA.VAN.IN ---
Assessment
- Assessment
Renal Function: Appears similar to baseline
Concomitant Antimicrobials: ZOSYN
- Previous Dosing Experience
Previous Regimen: NONE
AUC Dosing Plan
- Dosing Variables
Dosing Weight (kg): 51.5
Dosing CrCl (ml/min): 42
Vd coefficient (L/kg): 0.7
- Empiric Dosing
Initial / Loading Dose: 1GM
Maintenance Regimen: 750MG IV Q24H
Estimated AUC (mcg*h/mL): 540
Estimated Peak (mcg*h/mL): 34.1
Estimated Trough (mcg/ml): 13.8
Estimated Half Life (H): 17.7
Pharmacokinetics Vancomycin I
- -
Patient Age: 84
Patient Sex: Female
Vancomycin Day #: 1
Indication: Pulmonary/Respiratory
Height / Weight:
Height 5 ft 2 in
Actual Weight 51.528 kg
Pertinent Past Medical History: FAILED OUTPT TX WITH AUGMENTIN + DOXYCYCLINE
- Vital Signs / Lab Results
Temp Pulse Resp BP Pulse Ox
98.4 F 83 20 135/71 95
11/22/24 18:34 11/22/24 18:34 11/22/24 18:34 11/22/24 18:34 11/22/24 18:34
Lab Results - Hematology
11/22/24
09:45
WBC 11.3 H
Lab Results - Chemistry
11/22/24
09:45
BUN 12
Creatinine 0.8
Albumin 3.8
[2024-11-22] MEDS: NORVASC 5 MG PO (21:13)
[2024-11-22] MEDS: CRESTOR 10 MG PO (21:13)
[2024-11-22] MEDS: ELIQUIS 2.5 MG PO (21:21)
[2024-11-23] VITALS (7 sets, daily range): BP systolic 113–128; BP diastolic 62–68; O2SAT 94–97
[2024-11-23] MEDS: ZOSYN 50 IV ×3 (02:20→14:39)
[2024-11-23] MEDS: VANCOCIN 150 IV (07:42)
[2024-11-23] MEDS: ORETIC 12.5 MG PO (07:43)
[2024-11-23] MEDS: ELIQUIS 2.5 MG PO ×2 (07:43→20:30)
[2024-11-23] MEDS: ZESTRIL 20 MG PO (07:43)
[2024-11-23] MEDS: PACERONE 200 MG PO (07:43)
[2024-11-23] MEDS: THERAGRAN 1 TABLET PO (07:43)
[2024-11-23] MEDS: TORADOL 15 MG IV ×2 (07:52→21:11)
[2024-11-23 08:27] LABS: Hematocrit 36.2 % (37.0-47.0); Hemoglobin 12.2 g/dL (12.0-16.0); Mean Corp Hgb Conc. 33.7 g/dL (33.0-37.0); Mean Corpuscular Hgb 28.8 pg (27.0-31.0); Mean Corpuscular Volume 85.4 fL (81.0-99.0); Mean Platelet Volume 8.7 fL (7.4-10.4); Platelet Count 393 10^3/uL (130-400); Red Blood Cell Count 4.24 10^6/uL (4.20-5.40); Red Cell Dist. Width 14.9 % (11.5-14.5); White Blood Cell Count 10.6 10^3/uL (4.8-10.8)
--- NOTE | 2024-11-23 08:32 | W.PN.HOSP.TC ---
Today's Communication/Plan
-
Antibiotics changed to IV Rocephin and IV Doxycycline
Check strep and legionella
Continue pulmonary toilet
Sputum culture when possible
Assessment / Plan
Assessment / Plan
Physical Exam
General: Well Developed, Well Nourished and No Apparent Distress
HEENT: NormoCephalic, Moist mucous membranes and Atraumatic
Respiratory: Clear
Cardiac: S1/S2 and Regular Rhythm; No Murmur or Rub
GI: Soft, Non Tender, Non Distended and Normal Bowel Sounds; No Organomegaly
Rectal: Deferred by Provider
Musculoskeletal: No Clubbing, No Cyanosis and No Edema
Skin: No Rash
Neuro: Nonfocal/grossly intact
Assessment/Plan
HPI
84F Non smoker, HX HTN seen at ER :
- she was seen at ER 3 days ago for cough and congestion. She was discharged on Augmentin and doxycycline
- return to ER with night sweats last night shortness of breath along with increasing pain to her entire back.
- she saw her PCP and was sent to ER
- reports she has had night sweats last night complains of pain throughout her entire back.
- Prior to being on Augmentin and doxycycline she was on cefdinir prescribed to her family doctor.
11/19/24 CXR; small patchy opacity in the Rt LL suggesting atelectasis and or pneumonia
Reviewed VS: Afebrile, HR 80- 65 RR 20-18 BP 136/71 POx 96 on RA
Data
WCC 11.3
nl BMP
nl LFTs
BG 116
NEG TPN
11/22/24 CT Chest PE Study
- No evidence of pulmonary embolus.
- Moderate right lower lobe, mild left lower lobe and minimal right upper lobe findings suggesting pneumonia.
- Mild bilateral hilar lymphadenopathy likely reactive
- Bilateral renal cysts.
- Gallstones.
- Dilated thoracic aorta as described above.
- Moderate T8 compression fracture. Stable
Initial EKG
SINUS RHYTHM WITH 1ST DEGREE A-V BLOCK
LEFT AXIS DEVIATION
MINIMAL VOLTAGE CRITERIA FOR LVH, MAY BE NORMAL VARIANT ( [employer] product )
SEPTAL INFARCT , AGE UNDETERMINED
ABNORMAL ECG
WHEN COMPARED WITH ECG OF 19-NOV-2024 13:41,
NONSPECIFIC T WAVE ABNORMALITY, WORSE IN LATERAL LEADS
Confirmed by JB TOMPKINS MD ([id number]) on 11/22/2024 12:33:54 PM
Assessment/Plan
Moderate RLL, mild RUL, mild LLL PNA
Associated reactive hilar LAD
Leukocytosis RESOLVED after start of Vanco and Zosyn
-Patient had URI symptoms around 11/08/24, then she went to her physician around 11/14/24, got 2 meds (Cefdinir and steroids) for bronchitis (which did not work and she developed right sided pleuritic upper back pain), then came to ER here and was
discharged on PO Augmentin and Doxycycline (seemed like received those in PO in the ER at that time as well), but still continued to get worse, developing worsening symptoms including night sweats
-Patient's pleuritic chest pain has improved with Vancomycin and Zosyn which was given initially
-MRSA screen negative: stopped Vancomycin
-Stop Vancomycin and replace with IV Rocephin and IV Doxycycline
-Patient has a significant pneumonia with pleuritic chest wall/right upper back pain, failing to respond to recent oral antibiotics above which requires a few days of IV antibiotics
-If does worse with IV Rocephin and Doxycycline or repeat chest imaging suggests worsening, will have to monitor for longer on IV antibiotics and consider changing to include Pseudomonas coverage
-Sputum culture as able
-Pulmonary toilet as below
-Mucinex, Ipratropium QID, avoiding Albuterol given history of A-Fib tachycardia (as per patient), incentive spirometer Q1H while awake, acapella/flutter valve
-Avoid Vest Therapy due to compression fracture
-Out of bed as tolerated
-Check Strep Ag and Legionella Ag -- ordered
Stable moderate T8 compression fracture
HX Prx AF
- UNDER WATER ASSISTANT Amiodarone, Eliquis to be cont.
- Patient sees Dr. Anderson of [facility] cardiology outpatient
Benign HTN
- UNDER WATER ASSISTANT Amlodipine, Benazepril and HCTZ to be cont.
Hyperlipidemia
- UNDER WATER ASSISTANT Rosuvastatin to be cont.
DVT Prophylaxis: Eliquis
Code Status: DNR (per Dr. Lancaster -- please see Dr. Lancaster's addendum of his History & Physical note from 11/22/24)
Anticipated Discharge: 24 - 48 hours
Subjective/Interval History
-
Date of Service: November 23, 2024
Patient was seen and examined. She reported her right-sided chest/back wall pain has improved and she is feeling a whole lot better.
Objective Data
-
Labs:
Laboratory Results
11/23/24
07:40
WBC 10.6
Hgb 12.2
Hct 36.2 L
Plt Count 393
Sodium Pending
Potassium Pending
Chloride Pending
Carbon Dioxide Pending
BUN Pending
Creatinine Pending
Glucose Pending
Calcium Pending
Total Bilirubin Pending
AST Pending
ALT Pending
Alkaline Phosphatase Pending
Vital Signs:
Vital Signs
Temp Pulse Resp BP Pulse Ox
98.3 F 71 18 121/65 96
11/23/24 07:31 11/23/24 07:31 11/23/24 07:31 11/23/24 07:31 11/23/24 07:31
[2024-11-23 09:07] LABS: ALT (SGPT) 18 U/L (0-35); AST (SGOT) 22 U/L (14-36); Albumin 3.3 g/dl (3.5-5.0); Alkaline Phosphatase 82 U/L (38-126); Blood Urea Nitrogen 14 mg/dl (7-17); Calcium 9.1 mg/dl (8.4-10.2); Carbon Dioxide 26 mmol/L (22-30); Chloride 103 mmol/L (98-107); Estimated Creatinine Clearance 42 ml/min; Glucose 93 mg/dl (70-99); Potassium 4.4 mmol/L (3.5-5.1); Sodium 137 mmol/L (135-145); Total Protein 6.6 g/dl (6.3-8.2); eGFR > 60.00
--- NOTE | 2024-11-23 09:43 | PHA.VAN.FU ---
Vancomycin Assessment / Plan
- Assessment
Renal Function: Stable
WBC's are: Trending Down
In the past 24 hrs, patient has been: Afebrile
Concomitant Antimicrobials: PIPERACILLIN/TAZOBACTAM
- Dosing Plan
Continue: VANCO 750MG Q24H
- Monitoring Plan
No level(s) ordered at this time: CONSIDER LEVEL IN NEXT FEW DAYS
MRSA Screen: Ordered per protocol
- Follow Up
Pharmacy will continue to follow.
Vancomycin Follow UP
- -
Patient Age: 84
Patient Sex: Female
Vancomycin Day #: 2
Indication: Pulmonary/Respiratory
Height / Weight:
Height 5 ft 2 in
Actual Weight 51.528 kg
Pertinent Past Medical History: FAILED OUTPT TX WITH AUGMENTIN + DOXYCYCLINE
- Vital Signs / Lab Results
Temp Pulse Resp BP Pulse Ox
98.3 F 71 18 121/65 96
11/23/24 07:31 11/23/24 07:31 11/23/24 07:31 11/23/24 07:31 11/23/24 07:31
Lab Results - Hematology
11/22/24 11/23/24
09:45 07:40
WBC 11.3 H 10.6
Lab Results - Chemistry
11/22/24 11/23/24
09:45 07:40
BUN 12 14
Creatinine 0.8 0.8
Estimated Creat Clear 42
Albumin 3.8 3.3 L
[2024-11-23] MEDS: NORVASC 5 MG PO (17:15)
[2024-11-23] MEDS: CRESTOR 10 MG PO (17:15)
[2024-11-23] MEDS: ATROVENT NEBULES 0.5 MG INH (19:34)
[2024-11-23] MEDS: MUCINEX 1200 MG PO (20:30)
[2024-11-23] MEDS: ROCEPHIN 1000 MG IV (20:30)
[2024-11-23] MEDS: STERILE WATER FOR INJECTION 10 ML IV (20:32)
[2024-11-23] MEDS: VIBRAMYCIN 260 MG IV (21:11)
[2024-11-24 03:54] VITALS: BP 108/69
[2024-11-24 07:40] VITALS: BP 118/58
[2024-11-24 07:44] LABS: % Basophils 0.8 % (0-2); % Immature Granulocytes 1.2 % (0-0.5); % Lymphocytes 16.3 % (20.5-51.1); % Monocytes 9.4 % (1.7-9.3); % Neutrophils 66.3 % (42.2-75.2); Absolute Basophils 0.1 10^3/uL (0-0.2); Absolute Eosinophils 0.7 10^3/uL (0-0.7); Absolute Immature Granulocytes 0.1 10^3/uL (0-0.05); Absolute Lymphocytes 1.8 10^3/uL (1.2-3.4); Absolute Monocytes 1.1 10^3/uL (0.1-0.6); Absolute Neutrophils 7.5 10^3/uL (1.4-6.5); Hematocrit 36.4 % (37.0-47.0); Hemoglobin 12.3 g/dL (12.0-16.0); Mean Corp Hgb Conc. 33.8 g/dL (33.0-37.0); Mean Corpuscular Hgb 29.2 pg (27.0-31.0); Mean Corpuscular Volume 86.5 fL (81.0-99.0); Mean Platelet Volume 8.5 fL (7.4-10.4); Nucleated Red Blood Cells % 0 %; Platelet Count 391 10^3/uL (130-400); Red Blood Cell Count 4.21 10^6/uL (4.20-5.40); Red Cell Dist. Width 14.7 % (11.5-14.5); White Blood Cell Count 11.2 10^3/uL (4.8-10.8)
[2024-11-24] MEDS: ATROVENT NEBULES 0.5 MG INH ×4 (07:51→19:56)
[2024-11-24] MEDS: THERAGRAN 1 TABLET PO (08:03)
[2024-11-24] MEDS: MUCINEX 1200 MG PO ×2 (08:03→20:47)
[2024-11-24] MEDS: ORETIC 12.5 MG PO (08:03)
[2024-11-24] MEDS: PACERONE 200 MG PO (08:03)
[2024-11-24] MEDS: ZESTRIL 20 MG PO (08:04)
[2024-11-24] MEDS: VIBRAMYCIN 260 MG IV ×2 (08:04→20:49)
[2024-11-24] MEDS: ELIQUIS 2.5 MG PO ×2 (08:04→20:48)
[2024-11-24 08:39] LABS: Blood Urea Nitrogen 20 mg/dl (7-17); Calcium 9.1 mg/dl (8.4-10.2); Carbon Dioxide 26 mmol/L (22-30); Chloride 103 mmol/L (98-107); Estimated Creatinine Clearance 37 ml/min; Glucose 87 mg/dl (70-99); Potassium 4.1 mmol/L (3.5-5.1); Sodium 139 mmol/L (135-145); eGFR > 60.00
[2024-11-24 10:59] VITALS: BP 107/53
--- NOTE | 2024-11-24 11:26 | CM ---
CM reviewed chart, patient seen bedside, initial assessment completed. Patient resides independently in split level home, no steps to enter, 4 steps, landing, then 9 steps up. Patient denies use of DME, does report double railings on stair case,
railings in bathroom. Patient confirms PCP Carolina Wakefield, [facility], confirms prescription coverage. Patient reports when stable for d/c, one of her children will provide transportation home. CM will continue to follow for all
discharge planning needs.
Plan; home no needs likely
[2024-11-24 15:11] VITALS: BP 117/56
[2024-11-24] MEDS: ATROVENT NEBULES INH (15:26)
[2024-11-24] MEDS: CRESTOR 10 MG PO (17:24)
[2024-11-24] MEDS: NORVASC 5 MG PO (17:24)
--- NOTE | 2024-11-24 18:09 | W.PN.HOSP.TC ---
Today's Communication/Plan
-
Doing better but still quite symptomatic
Cough is now productive
Continue antibiotics
Check legionella and strep as ordered yesterday
CXR in the morning
Home O2 assessment in the morning
Assessment / Plan
Assessment / Plan
Physical Exam
General: Not in acute distress
HEENT: Normocephalic, Moist mucous membranes and Atraumatic
Respiratory: Mild Rhonchi Bilaterally
Cardiac: S1/S2 and Regular Rhythm
GI: Soft, Non Tender, Non Distended and Normal Bowel Sounds
Musculoskeletal: No Cyanosis and No Edema
Skin: Warm. Dry.
Neuro: AAOx2. Nonfocal/grossly intact
Assessment/Plan
HPI
84F Non smoker, HX HTN seen at ER :
- she was seen at ER 3 days prior to presentation for cough and congestion. She was discharged on Augmentin and doxycycline
- returned to ER with night sweats shortness of breath along with increasing pain to her entire back.
- she saw her PCP and was sent to ER
- Prior to being on Augmentin and doxycycline she was on cefdinir and steroids prescribed to her family doctor.
11/19/24 CXR; small patchy opacity in the Rt LL suggesting atelectasis and or pneumonia
11/22/24 CT Chest PE Study
- No evidence of pulmonary embolus.
- Moderate right lower lobe, mild left lower lobe and minimal right upper lobe findings suggesting pneumonia.
- Mild bilateral hilar lymphadenopathy likely reactive
- Bilateral renal cysts.
- Gallstones.
- Dilated thoracic aorta as described above.
- Moderate T8 compression fracture. Stable
Moderate RLL, mild RUL, mild LLL PNA
Associated reactive hilar LAD
Leukocytosis RESOLVED after start of Vanco and Zosyn
-Patient had URI symptoms around 11/08/24, then she went to her physician around 11/14/24, got 2 meds (Cefdinir and steroids) for bronchitis (which did not work and she developed right sided pleuritic upper back pain), then came to ER here and was
discharged on PO Augmentin and Doxycycline (seemed like received those in PO in the ER at that time as well), but still continued to get worse, developing worsening symptoms including night sweats
-Patient's pleuritic chest pain has improved with Vancomycin and Zosyn which was given initially
-MRSA screen negative: stopped Vancomycin
-Stop Vancomycin and replaced on 11/23/24 with IV Rocephin and IV Doxycycline -- given complicated course of pneumonia above consider giving longer (e.g. 10 days total of antibiotics) course of antibiotics
-Patient has a significant pneumonia with pleuritic chest wall/right upper back pain, failing to respond to recent oral antibiotics above which requires a few days of IV antibiotics
-If does worse with IV Rocephin and Doxycycline or repeat chest imaging suggests worsening, will have to monitor for longer on IV antibiotics and consider changing to include Pseudomonas coverage, but patient continues to improve
-Sputum culture as able
-Pulmonary toilet as below
-Mucinex, Ipratropium QID, avoiding Albuterol given history of A-Fib tachycardia (as per patient), incentive spirometer Q1H while awake, acapella/flutter valve
-Avoid Vest Therapy due to compression fracture
-Out of bed as tolerated
-Check Strep Ag and Legionella Ag -- ordered on 11/23/24
-Repeat CXR ordered for tomorrow AM
-Home O2 assessment ordered for tomorrow AM
Stable moderate T8 compression fracture
HX Prx AF
- CLINICAL PSYCHOLOGY PROFESSOR Amiodarone, Eliquis continue
- Patient sees Dr. Anderson of [facility] cardiology outpatient
Benign HTN
- CLINICAL PSYCHOLOGY PROFESSOR Amlodipine, Benazepril and HCTZ continue
Hyperlipidemia
- CLINICAL PSYCHOLOGY PROFESSOR Rosuvastatin continue
DVT Prophylaxis: Eliquis
Code Status: DNR (per Dr. Lancaster -- please see Dr. Lancaster's addendum of his History & Physical note from 11/22/24)
Anticipated Discharge: 24 - 48 hours
Subjective/Interval History
-
Date of Service: November 24, 2024
Patient was seen and examined. She reported feeling better, still with right chest and right upper back wall pain, still with chest congestion, but able to make a productive cough now.
Objective Data
-
Labs:
Laboratory Results
11/24/24
06:54
WBC 11.2 H
Hgb 12.3
Hct 36.4 L
Plt Count 391
Sodium 139
Potassium 4.1
Chloride 103
Carbon Dioxide 26
BUN 20 H
Creatinine 0.9
Glucose 87
Calcium 9.1
Vital Signs:
Vital Signs
Temp Pulse Resp BP Pulse Ox
98.1 F 71 16 117/56 96
11/24/24 15:11 11/24/24 16:12 11/24/24 16:12 11/24/24 15:11 11/24/24 16:12
I&O
11/23/24 11/24/24 11/25/24
06:59 06:59 06:59
Intake Total 1200 / 1200 1080 / 1080
Balance 1200 / 1200 1080 / 1080
[2024-11-24 19:41] VITALS: BP 133/65
[2024-11-24] MEDS: ROCEPHIN 1000 MG IV (20:48)
[2024-11-24] MEDS: STERILE WATER FOR INJECTION 10 ML IV (20:48)
[2024-11-24 23:14] VITALS: BP 111/56
[2024-11-25 03:15] VITALS: BP 112/63
[2024-11-25 07:00] VITALS: BP 122/97
[2024-11-25 07:42] LABS: % Basophils 0.9 % (0-2); % Eosinophils 5.7 % (0-6); % Immature Granulocytes 0.5 % (0-0.5); % Lymphocytes 20.2 % (20.5-51.1); % Monocytes 9.1 % (1.7-9.3); % Neutrophils 63.6 % (42.2-75.2); Absolute Basophils 0.1 10^3/uL (0-0.2); Absolute Eosinophils 0.6 10^3/uL (0-0.7); Absolute Immature Granulocytes 0.1 10^3/uL (0-0.05); Absolute Monocytes 0.9 10^3/uL (0.1-0.6); Absolute Neutrophils 6.3 10^3/uL (1.4-6.5); Hematocrit 36.3 % (37.0-47.0); Hemoglobin 12.1 g/dL (12.0-16.0); Mean Corp Hgb Conc. 33.3 g/dL (33.0-37.0); Mean Corpuscular Hgb 28.9 pg (27.0-31.0); Mean Corpuscular Volume 86.8 fL (81.0-99.0); Mean Platelet Volume 8.4 fL (7.4-10.4); Nucleated Red Blood Cells % 0 %; Platelet Count 349 10^3/uL (130-400); Red Blood Cell Count 4.18 10^6/uL (4.20-5.40); Red Cell Dist. Width 14.8 % (11.5-14.5); White Blood Cell Count 9.9 10^3/uL (4.8-10.8)
[2024-11-25] MEDS: ATROVENT NEBULES 0.5 MG INH ×4 (07:43→19:44)
[2024-11-25 08:23] LABS: Blood Urea Nitrogen 19 mg/dl (7-17); Carbon Dioxide 25 mmol/L (22-30); Chloride 105 mmol/L (98-107); Estimated Creatinine Clearance 42 ml/min; Glucose 86 mg/dl (70-99); Potassium 4.1 mmol/L (3.5-5.1); Sodium 137 mmol/L (135-145); eGFR > 60.00
[2024-11-25] MEDS: ELIQUIS 2.5 MG PO ×2 (08:52→20:15)
[2024-11-25] MEDS: ORETIC 12.5 MG PO (08:52)
[2024-11-25] MEDS: PACERONE 200 MG PO (08:52)
[2024-11-25] MEDS: MUCINEX 1200 MG PO ×2 (08:52→20:15)
[2024-11-25] MEDS: ZESTRIL 20 MG PO (08:52)
[2024-11-25] MEDS: THERAGRAN 1 TABLET PO (08:52)
[2024-11-25] MEDS: VIBRAMYCIN 260 MG IV ×2 (08:54→20:15)
--- NOTE | 2024-11-25 09:56 | W.PN.HOSP.TC ---
Today's Communication/Plan
-
if improving - possible d/c in AM
Assessment / Plan
Assessment / Plan
84yo F with PMHX of HTN, HLD, Afib on Eliquis s/p CV in 2022 came with persistent cough, chest pain and managed for b/l pneumonia. Failed outpatient treatment with Augmentin and Cefdinir. Improving on IV Abx
A/P:
#RLL, LLL and RUL pneumonia with unspecified organism
MRSA neg
Ceftriaxone/DOxy
SPutum Cx if possible
Legionella and S.pneumonia urinary Ag pending
Improving on myucoliics and antitussives
No PE on CTA chest
#Reactive hilar lymphadenopathy
repeat CT chest in 6-8 weeks upon recovery
#Essential HTN
#HLD
#Afib, persistent
cont home meds
DVT ppx on ELiquis
DNR/DNI
I have spent at least 37min reviewing chart, test results, communication with consultants and providing direct patient care
Anticipated Discharge: Within 24 hours
Subjective/Interval History
-
Date of Service: November 25, 2024
Objective Data
-
Labs:
Laboratory Results
11/25/24
06:57
WBC 9.9
Hgb 12.1
Hct 36.3 L
Plt Count 349
Sodium 137
Potassium 4.1
Chloride 105
Carbon Dioxide 25
BUN 19 H
Creatinine 0.8
Glucose 86
Calcium 9.0
Vital Signs:
Vital Signs
Temp Pulse Resp BP Pulse Ox
98.6 F 70 14 122/97 95
11/25/24 07:00 11/25/24 07:45 11/25/24 07:45 11/25/24 07:00 11/25/24 07:45
I&O
11/24/24 11/25/24 11/26/24
06:59 06:59 06:59
Intake Total 1200 / 1200 1080 / 1080
Balance 1200 / 1200 1080 / 1080
Review of Systems
-
History Source: Patient
All other systems: Reviewed and negative
Physical Exam
-
General: Comfortable
HEENT: Normocephalic
Respiratory: Clear to Auscultation
Cardiac: Regular Rhythm
GI: Soft, Nontender and Nondistended
Musculoskeletal: No Clubbing, No Cyanosis and No Edema
Neuro: Awake, Alert, Oriented and AO x 3
Psych: Calm
[2024-11-25 11:00] VITALS: BP 140/70
--- NOTE | 2024-11-25 11:24 | PTOTSP ---
Dysphagia Eval
Suspect WFL oral/pharyngeal stages of swallowing. Patient reporting solid dysphagia (i.e., stasis at base of neck) concerning for possible esophageal dysphagia. Dilated thoracic aorta noted on CT of Chest, raising concern for possible elevated
risk for dysphagia aortica. GI consult warranted.
Recommend:
1. Regular, Thin
2. Medications as best tolerated
3. Pick soft moist foods from menu, reflux precautions
4. GI consult. Consider esophageal assessment.
[2024-11-25 15:00] VITALS: BP 113/63
[2024-11-25] MEDS: CRESTOR 10 MG PO (17:04)
[2024-11-25] MEDS: NORVASC 5 MG PO (17:04)
[2024-11-25] MEDS: ROCEPHIN 1000 MG IV (20:15)
[2024-11-25] MEDS: STERILE WATER FOR INJECTION 10 ML IV (20:15)
[2024-11-25 23:29] VITALS: BP 103/53
[2024-11-26] MEDS: ORETIC 12.5 MG PO (07:22)
[2024-11-26] MEDS: PACERONE 200 MG PO (07:22)
[2024-11-26] MEDS: VISBIOME 1 CAP PO (07:22)
[2024-11-26] MEDS: MUCINEX 1200 MG PO (07:22)
[2024-11-26] MEDS: ELIQUIS 2.5 MG PO (07:22)
[2024-11-26] MEDS: THERAGRAN 1 TABLET PO (07:22)
[2024-11-26] MEDS: ZESTRIL 20 MG PO (07:22)
[2024-11-26 07:23] VITALS: BP 116/57
[2024-11-26] MEDS: MIRALAX 17 GRAMS PO (07:23)
[2024-11-26] MEDS: VIBRAMYCIN 260 MG IV (07:23)
[2024-11-26 07:48] LABS: % Basophils 0.9 % (0-2); % Eosinophils 6.2 % (0-6); % Immature Granulocytes 0.7 % (0-0.5); % Lymphocytes 20.1 % (20.5-51.1); % Neutrophils 62.1 % (42.2-75.2); Absolute Basophils 0.1 10^3/uL (0-0.2); Absolute Eosinophils 0.6 10^3/uL (0-0.7); Absolute Immature Granulocytes 0.1 10^3/uL (0-0.05); Absolute Neutrophils 6.1 10^3/uL (1.4-6.5); Hematocrit 36.7 % (37.0-47.0); Hemoglobin 12.2 g/dL (12.0-16.0); Mean Corp Hgb Conc. 33.2 g/dL (33.0-37.0); Mean Corpuscular Hgb 28.9 pg (27.0-31.0); Mean Platelet Volume 8.6 fL (7.4-10.4); Nucleated Red Blood Cells % 0 %; Platelet Count 349 10^3/uL (130-400); Red Blood Cell Count 4.22 10^6/uL (4.20-5.40); White Blood Cell Count 9.8 10^3/uL (4.8-10.8)
[2024-11-26] MEDS: ATROVENT NEBULES 0.5 MG INH ×2 (08:10→11:06)
--- NOTE | 2024-11-26 11:01 | W.PN.HOSP.TC ---
Today's Communication/Plan
-
dc
Assessment / Plan
Assessment / Plan
84yo F with PMHX of HTN, HLD, Afib on Eliquis s/p CV in 2022 came with persistent cough, chest pain and managed for b/l pneumonia. Failed outpatient treatment with Augmentin and Cefdinir. Improving on IV Abx, afebrile and no leukocytosis on the day
of d/c - reasonable to complete outpatient course of Abx. Medically stable for d/c home.
A/P:
#RLL, LLL and RUL pneumonia with unspecified organism
MRSA neg
Ceftriaxone/DOxy
SPutum Cx if possible
Legionella and S.pneumonia urinary Ag pending
Improving on myucoliics and antitussives
No PE on CTA chest
#Reactive hilar lymphadenopathy
repeat CT chest in 6-8 weeks upon recovery
#Essential HTN
#HLD
#Afib, persistent
cont home meds
DVT ppx on ELiquis
DNR/DNI
I have spent at least 37min reviewing chart, test results, communication with consultants and providing direct patient care
Anticipated Discharge: Today
Subjective/Interval History
-
Date of Service: November 26, 2024
Objective Data
-
Labs:
Laboratory Results
11/26/24
06:27
WBC 9.8
Hgb 12.2
Hct 36.7 L
Plt Count 349
Vital Signs:
Vital Signs
Temp Pulse Resp BP Pulse Ox
97.6 F 71 16 116/57 98
11/26/24 07:23 11/26/24 08:14 11/26/24 08:14 11/26/24 07:23 11/26/24 08:14
I&O
11/25/24 11/26/24 11/27/24
06:59 06:59 06:59
Intake Total 1080 / 1080
Balance 1080 / 1080
Review of Systems
-
History Source: Patient
All other systems: Reviewed and negative
Physical Exam
-
General: No Apparent Distress
HEENT: Normocephalic
Respiratory: Clear to Auscultation
GI: Soft, Nontender and Nondistended
Neuro: Awake, Alert, Oriented and AO x 3
Psych: Calm
--- NOTE | 2024-11-26 11:06 | W.DCSUMMARY ---
Addendum entered and electronically signed by Nic Soto MD 11/26/24 16:06:
#Dilated ascending aorta - follow up with CT
Original Note:
Discharge Summary
Discharge Data
Date of Admission: 11/22/24
Date of Discharge: 11/26/24
-
Pending Results: No
Hospital Course
84yo F with PMHX of HTN, HLD, Afib on Eliquis s/p CV in 2022 came with persistent cough, chest pain and managed for b/l pneumonia. Failed outpatient treatment with Augmentin and Cefdinir. Improving on IV Abx, afebrile and no leukocytosis on the day
of d/c - reasonable to complete outpatient course of Abx. Medically stable for d/c home.
I have spent at least 37min reviewing chart, test results, communication with consultants and providing direct patient care
Patient was managed for:
#RLL, LLL and RUL pneumonia with unspecified organism
#Reactive hilar lymphadenopathy
#Essential HTN
#HLD
#Afib, persistent
Discharge Plan
-
Patient Disposition: Home (Routine Discharge)
Discharge Diagnosis/Procedures: pneumonia
Diet: Low Cholesterol
Activity: As tolerated
Driving Restrictions: As prior to admission
Activity Restrictions/Additional Instructions:
Follow up with your family doctor in 4-[address] chest to verify resolution of pneumonia and lymphadenopathy
Referrals:
UNKNOWN - PT NOT,INTERVIEWE [Family Provider] -
Prescriptions:
New
guaifenesin 600 mg Tablet Extended Release 12hr
1,200 mg PO Q12 Qty: 60 0RF
Lactobac/Bifidobac [Visbiome]
1 cap PO DAILY Qty: 30 0RF
cefdinir 300 mg capsule
300 mg PO BID Qty: 10 0RF
Continued
ascorbic acid (vitamin C) [Vitamin C] 500 MG tablet
500 mg PO DAILY
calcium carbonate-vitamin D3 1 EACH tablet
1 ea PO DAILY
acetaminophen 325 MG tablet
650 mg PO Q4HPRN PRN (Reason: temp greater than 100.4 F) 0RF
rosuvastatin 10 MG tablet
10 mg PO QPM Qty: 30 0RF
benazepril-hydrochlorothiazide 20-12.5 mg Tablet
1 tab PO DAILY
amiodarone 100 mg Tablet
200 mg PO DAILY
therapeutic multivitamin Tablet
1 tab PO DAILY
amlodipine [Norvasc] 5 mg Tablet
5 mg PO QPM
vitamin B complex Tablet
1 tab PO DAILY
Eliquis 2.5 mg Tablet
2.5 mg PO BID
doxycycline hyclate 100 mg tablet
100 mg PO BID 5 Days Qty: 10 0RF
Discontinued
amoxicillin-pot clavulanate 875-125 mg tablet
1 tab PO BID Qty: 14 0RF
Discharge Orders:
Discharge Patient (As Directed); Ordered 11/26/24
Ordered By: Nic Soto
Discharge Date and Time
Print Language: [id number]
--- NOTE | 2024-11-26 11:18 | CM ---
CM reviewed chart, patient seen bedside, for discharge today. IMM reviewed, signed, placed in chart, patient provided with copy. Patient reports her daughter will provide transportation home. CM will continue to follow for all discharge planning
needs.
Plan; home no needs.
[2024-11-26] MEDS: ATROVENT NEBULES INH (15:18)
== END 2024-11-26 16:10 | disposition home or self-care (01) | DRG 194 ==
LOC: 4 WEST ACU 14:07
PROVIDERS: Emergency Medicine; Hospitalist; ADMITTING PHYSICIAN Internal Medicine; ATTENDING PHYSICIAN Internal Medicine; EMERGENCY PHYSICIAN Emergency Medicine
DX: J18.9 Pneumonia, unspecified organism (principal); I48.19 Other persistent atrial fibrillation; E78.00 Pure hypercholesterolemia, unspecified; Z66 Do not resuscitate; I10 Essential (primary) hypertension; R59.0 Localized enlarged lymph nodes; I77.810 Thoracic aortic ectasia; Z79.01 Long term (current) use of anticoagulants; Z87.891 Personal history of nicotine dependence
CPT/HCPCS: 71046; 71275; 80048; 80053; 83735; 84484; 85025; 85027; 87641; 92610; 93005; 94640; 96361; 96365; 96367; 96375; 99285; Q9967

== ENCOUNTER → 2025-01-03 12:39 | Outpatient (REF) | payer OTHER, SELFPAY | LOC: RAD 12:39 | PROVIDERS: ATTENDING PHYSICIAN Emergency Medicine | DX: Z09 Encounter for follow-up examination after completed treatment for conditions other than malignant neoplasm (principal); J18.9 Pneumonia, unspecified organism | CPT/HCPCS: 71260; Q9967 ==

== ENCOUNTER → 2025-02-03 10:32 | Outpatient (REF) | payer OTHER, SELFPAY | LOC: RAD 10:32 | PROVIDERS: ATTENDING PHYSICIAN Internal Medicine Critical Care Medicine; FAMILY PHYSICIAN Emergency Medicine | DX: R05.3 Chronic cough (principal) | CPT/HCPCS: 71046 ==

== ENCOUNTER → 2025-07-02 10:41 | Outpatient (REF) | payer OTHER, SELFPAY | LOC: RAD 10:41 | PROVIDERS: ATTENDING PHYSICIAN Internal Medicine Cardiovascular Disease; FAMILY PHYSICIAN Family Medicine | DX: I48.0 Paroxysmal atrial fibrillation (principal) | CPT/HCPCS: 71046 ==